=== PATIENT | female | born 1945 | race Caucasian/White ===

== ENCOUNTER 2018-04-10 06:07 | Inpatient (IN) | payer MEDICARE ==
[2018-04-10] MEDS ORDERED: oxyCODONE IR 5 MG TABLET PO (08:00)
[2018-04-10] MEDS ORDERED: PROCHLORPERAZINE 10 MG/2 ML VIAL. IV (08:00)
[2018-04-10] MEDS ORDERED: PROCHLORPERAZINE 25 MG SUPP.RECT. PR (08:00)
[2018-04-10] MEDS ORDERED: ACETAMINOPHEN 325 MG TABLET. PO (08:00)
[2018-04-10] MEDS ORDERED: CALCIUM CARBONATE 500 MG TAB.CHEW PO (08:00)
[2018-04-10] MEDS ORDERED: MORPHINE SULFATE 2 MG/ML DISP.SYRIN. IV (08:00)
[2018-04-10] MEDS ORDERED: MAGNESIUM HYDROXIDE 2,400 MG/30 ML ORAL.SUSP. PO (08:00)
[2018-04-10] MEDS ORDERED: BISACODYL 10 MG SUPP.RECT. PR (08:00)
[2018-04-10] MEDS ORDERED: ONDANSETRON PF 4 MG/2 ML VIAL. IV (08:00)
[2018-04-10] MEDS ORDERED: MAG HYDROX/ALUMINUM HYD/SIMETH 30 ML ORAL.SUSP PO (08:00)
[2018-04-10] MEDS ORDERED: IBUPROFEN 400 MG TABLET. PO (08:00)
[2018-04-10 08:53] LABS: TROPONINI < 0.017 ng/mL (0.000-0.055)
[2018-04-10] MEDS: ISOSORBIDE MONONITRATE ER 30 MG TAB.ER.24H PO (08:58)
[2018-04-10] MEDS: CLOPIDOGREL BISULFATE 75 MG TABLET PO (08:58)
[2018-04-10] MEDS: LISINOPRIL 20 MG TABLET PO (08:59)
[2018-04-10] MEDS: NITROGLYCERIN PREMIX 250 ML IV (08:59)
[2018-04-10] MEDS: DOCUSATE SODIUM 100 MG CAPSULE. PO (09:00)
[2018-04-10] MEDS: CARVEDILOL 3.125 MG TABLET. PO (09:00)
[2018-04-10] MEDS: REGADENOSON 0.4 MG/5 ML DISP.SYRIN. IV ×2 (10:00→12:53)
[2018-04-10 14:54] LABS: TROPONINI < 0.017 ng/mL (0.000-0.055)
[2018-04-10] MEDS ORDERED: ATORVASTATIN CALCIUM 40 MG TABLET. PO (21:00)
== END 2018-04-10 18:00 | disposition home or self-care (01) | DRG 392 ==
LOC: 2 NORTH 06:07
PROVIDERS: Internal Medicine
DX: K21.9 Gastro-esophageal reflux disease without esophagitis (principal); I25.10 Atherosclerotic heart disease of native coronary artery without angina pectoris; R07.89 Other chest pain; I10 Essential (primary) hypertension; E78.5 Hyperlipidemia, unspecified; D63.8 Anemia in other chronic diseases classified elsewhere; I25.2 Old myocardial infarction; Z95.5 Presence of coronary angioplasty implant and graft; Z82.49 Family history of ischemic heart disease and other diseases of the circulatory system
CPT/HCPCS: 36415; 78452; 84484; 93017; 93306; 96374; 96375; 96376; 97165-GO; A9500; J2785; J3490